=== PATIENT | male | born 1945 ===

== ENCOUNTER 2020-12-05 11:48 | Emergency (ER) | payer MEDICARE, MEDICAID ==
[~2020-12-05] VITALS: Ht 172.7 cm; Wt 134.5 kg
--- NOTE | 2020-12-05 12:20 | NUR ---
PT IN HOSPITAL GOWN. PT CLOTHING AND WATCH PLACED IN BELONGINGS BAG AND PLACED IN CLOTHING LOCKER. PT DID NOT WANT TO SECURE HIS WATCH WITH SECURITY. PT STATED HE WAS DESATING ON RA IN THE AMBULANCE. PT IS 92% ON RA HERE. PT GIVEN FRESH SOCKS. SLAG DUMPER HAS BEEN IN TO TALK WITH PT.
[2020-12-05 12:25] LABS: BASOPHILS % (AUTO) 1 % (0-1); EOSINOPHILS % (AUTO) 2 % (1-7); LYMPHOCYTES % (AUTO) 15 % (22-44); MEAN CORPUSCULAR HEMOGLOBIN 31.9 pg (27.5-34.5); MEAN CORPUSCULAR HGB CONC 34.3 g/dL (33.2-36.2); MEAN PLATELET VOLUME 8.2 fL (7.4-10.4); MONOCYTES % (AUTO) 9 % (2-9); NEUTROPHILS % (AUTO) 73 % (42-75); PLATELET COUNT 299 x10^3/uL (130-400); RED BLOOD COUNT 5.31 x10^6/uL (4.38-5.82); RED CELL DISTRIBUTION WIDTH 14.2 % (9.4-14.8)
[2020-12-05 12:36] LABS: ALBUMIN 3.4 g/dL (3.4-5.0); ANION GAP 8 mmol/L (5-15); CALCIUM 9.2 mg/dL (8.5-10.1); CHLORIDE 105 mmol/L (98-107)
[2020-12-05] MEDS ORDERED: LOSARTAN PO (12:36)
[2020-12-05] MEDS ORDERED: AMLODIPINE PO (12:36)
[2020-12-05] MEDS ORDERED: REMERON PO (12:36)
[2020-12-05] MEDS ORDERED: NAPR-816 PO (12:36)
[2020-12-05] MEDS ORDERED: GABAPENTIN PO (12:36)
[2020-12-05] MEDS ORDERED: ZYPREXA PO (12:36)
[2020-12-05] MEDS ORDERED: HYDR25TA6 PO (12:36)
[2020-12-05 12:39] LABS: SALICYLATE LEVEL < 1.7 mg/dL (2.8-20.0)
[2020-12-05 12:44] LABS: ALANINE AMINOTRANSFERASE 30 U/L (12-78); ALKALINE PHOSPHATASE 94 U/L (45-117); BILIRUBIN,TOTAL 0.3 mg/dL (0.2-1.0); CREATININE 0.92 mg/dL (0.7-1.3); TOTAL PROTEIN 7.8 g/dL (6.4-8.2)
--- NOTE | 2020-12-05 13:02 | NUR ---
PT ATTEMPTING TO PROVIDE A URINE SAMPLE AT THIS TIME, URINAL PROVIDED. PSYCH FARM LOAN REPRESENTATIVE HAS SEEN PT.
[2020-12-05 13:45] LABS: AMPHETAMINE SCREEN, URINE Negative (Negative); BARBITURATE SCREEN, URINE Negative (Negative); BENZODIAZEPINE SCREEN, URINE Negative (Negative); CANNABINOID SCREEN, URINE Negative (Negative); COCAINE SCREEN, URINE Negative (Negative); METHADONE SCREEN, URINE Negative (Negative); OPIATE SCREEN, URINE Negative (Negative)
[2020-12-05] MEDS ORDERED: METOPROLOL SUCCINATE 50 MG TAB.ER.24H PO ONE (14:00)
--- NOTE | 2020-12-05 14:50 | NUR ---
BREAK RN- PT RESTING IN BED, SNACK PROVIDED
--- NOTE | 2020-12-05 15:15 | NUR ---
BHU HERE TO JUSTIN PT
--- NOTE | 2020-12-05 15:27 | NUR ---
PT RESTING IN BED. PT MEDICATED FOR ELEVATED BP. PT ON BP MONITOR. WILL CONTINUE TO MONITOR.
--- NOTE | 2020-12-05 16:11 | NUR ---
PT BP IMPROVED, SEE CHARTED.
--- NOTE | 2020-12-05 17:15 | NUR ---
PT RESTING IN BED WATCHING TV. SITTER AT [facility] FOR OBS.
[2020-12-05] MEDS ORDERED: AMLODIPINE 5 MG TABLET PO ONE (17:30)
[2020-12-05] MEDS ORDERED: AMLODIPINE 5 MG TABLET ONE (17:36)
[2020-12-05] MEDS ORDERED: LORazepam 1MG TABLET ONE (17:42)
[2020-12-05] MEDS ORDERED: LORazepam 1MG TABLET PO ONE (18:00)
--- NOTE | 2020-12-05 19:06 | NUR ---
ASSUMED CARE OF PATIENT. SITTER AT DOOR. VS STABLE. WILL CONTINUE TO MONITOR.
--- NOTE | 2020-12-05 19:29 | NUR ---
REPORT GIVEN TO TAYLOR KU FOR BREAK.
[2020-12-05 20:31] VITALS: BP 153/98
--- NOTE | 2020-12-05 20:34 | NUR ---
PT RESTING IN ROOM. NO ACUTE DISTRESS NOTED. VS STABLE. SITTER AT DOOR. WILL CONINUE TO MONITOR.
[2020-12-05] MEDS ORDERED: OLANZAPINE 5 MG TABLET PO SCH (21:00)
[2020-12-05] MEDS ORDERED: QUETIAPINE 25MG TABLET PO SCH (21:00)
[2020-12-05] MEDS ORDERED: LAMOTRIGINE 100 MG TABLET PO SCH (21:00)
[2020-12-05] MEDS ORDERED: MIRTAZAPINE 15 MG TABLET PO SCH (21:00)
== END 2020-12-05 21:21 ==
LOC: ED 12:16
DX: R45.851 Suicidal ideations (principal); F29 Unspecified psychosis not due to a substance or known physiological condition; I10 Essential (primary) hypertension
CPT/HCPCS: 36415; 80053; 80299; 80307; 80320; 80329; 84443; 85025; 93005; 99285; G0480

== ENCOUNTER 2020-12-18 12:39 | Emergency (ER) | payer MEDICARE, MEDICAID ==
[~2020-12-18] VITALS: Ht 172.7 cm; Wt 130.0 kg
[~2020-12-18 12:39] MED LIST: AMLODIPINE PO; GABAPENTIN PO; HYDR25TA6 PO; LOSARTAN PO; NAPR-816 PO; REMERON PO; ZYPREXA PO
[2020-12-18 13:02] VITALS: BP 164/101
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
[2020-12-18] MEDS ORDERED: QUETIAPINE 100MG TABLET ONE (13:39)
[2020-12-18 13:50] LABS: BASOPHILS % (AUTO) 1 % (0-1); EOSINOPHILS % (AUTO) 2 % (1-7); LYMPHOCYTES % (AUTO) 12 % (22-44); MEAN CORPUSCULAR HEMOGLOBIN 31.7 pg (27.5-34.5); MEAN CORPUSCULAR HGB CONC 33.9 g/dL (33.2-36.2); MEAN PLATELET VOLUME 8.2 fL (7.4-10.4); MONOCYTES % (AUTO) 15 % (2-9); NEUTROPHILS % (AUTO) 71 % (42-75); PLATELET COUNT 267 x10^3/uL (130-400); RED BLOOD COUNT 4.83 x10^6/uL (4.38-5.82); RED CELL DISTRIBUTION WIDTH 14.2 % (9.4-14.8)
[2020-12-18] MEDS ORDERED: BUPROPION SR 100 MG TABLET PO SCH (14:00)
--- NOTE | 2020-12-18 14:02 | NUR ---
PT UPRIGHT ON GURNEY AWAKE & CALM, DENIES PAIN/NAD, COOPERATIVE & RESPONDS TO STAFF QUESTIONS, COMFORT MEASURES PROVIDED, PT IN SAFE ENVIRONMENT, SITTER IN VIEW.
[2020-12-18 14:06] LABS: ALBUMIN 3.2 g/dL (3.4-5.0); ANION GAP 5 mmol/L (5-15); CALCIUM 9.1 mg/dL (8.5-10.1); CHLORIDE 101 mmol/L (98-107); CREATININE 1.04 mg/dL (0.7-1.3); SALICYLATE LEVEL < 1.7 mg/dL (2.8-20.0)
[2020-12-18 14:34] LABS: AMPHETAMINE SCREEN, URINE Negative (Negative); BARBITURATE SCREEN, URINE Negative (Negative); BENZODIAZEPINE SCREEN, URINE Negative (Negative); CANNABINOID SCREEN, URINE Positive (Negative); COCAINE SCREEN, URINE Negative (Negative); METHADONE SCREEN, URINE Negative (Negative); OPIATE SCREEN, URINE Negative (Negative)
--- NOTE | 2020-12-18 15:00 | NUR ---
REPORT GIVEN TO HENRY VAZQUEZ
--- NOTE | 2020-12-18 15:04 | NUR ---
REPORT FROM AMY VAZQUEZ
--- NOTE | 2020-12-18 15:20 | NUR ---
PT RESTING IN [facility]. RESP EVEN AND UNLABORED. SI PRECUATIONS IN PLACE, SITTER AT DOORWAY
--- NOTE | 2020-12-18 17:10 | NUR ---
TP RN NOTE: PSYCH PACKET FAXED TO [facility], [facility]ITT[facility] BLANCA, [place], [facility], [facility]. [facility] CALLED AND NOTIFIED THAT PT IS ACCEPTED. PT TO BE TRANSPORTED FOLLOWING COVID SWAB AND TRANSPORT.
--- NOTE | 2020-12-18 17:15 | NUR ---
SI DINNER TRAY GIVEN TO PT.
--- NOTE | 2020-12-18 17:33 | NUR ---
RAPID IMER COLLECTED AND WALKED TO LAB. PT UPDATED ON POC
--- NOTE | 2020-12-18 17:35 | NUR ---
THROUGHPUT RN: [facility] CALLED TO STATE THEY ARE CURRENTLY AT CAPACITY AND WILL NOTIFY THE THROUGHPUT NURSE WHEN THEY HAVE A ROOM AVAILABLE.
[2020-12-18] MEDS ORDERED: QUET200T4 PO (17:55)
--- NOTE | 2020-12-18 18:45 | NUR ---
REPORT GIVEN TO ABDI VAZQUEZ
--- NOTE | 2020-12-18 18:48 | NUR ---
BEDSIDE REPORT FROM HENRY VAZQUEZSUPERVISORY INVESTIGATIVE SPECIALIST OF CARE AT THIS TIME.
--- NOTE | 2020-12-18 19:29 | NUR ---
REPORT TO SIENA VAZQUEZ PT READY FOR TRANSFER TO [facility] AT THIS TIME
[2020-12-18] MEDS ORDERED: QUETIAPINE 200 MG TABLET PO SCH (21:00)
[2020-12-19] MEDS ORDERED: RISP1TAB90 PO (11:32)
[2020-12-19] MEDS ORDERED: VENL75CA6 PO (11:32)
[2020-12-19] MEDS ORDERED: VENL150T PO (11:32)
[2020-12-19] MEDS ORDERED: QUET50TA5 PO (11:49)
[2020-12-19] MEDS ORDERED: LOSA100T14 PO (11:49)
[2020-12-19] MEDS ORDERED: LAMO100T8 PO (11:49)
[2020-12-19] MEDS ORDERED: GABA-827 PO (11:49)
[2020-12-19] MEDS ORDERED: ESCI10TA97 PO (11:49)
[2020-12-19] MEDS ORDERED: HYDR25TA6 PO (11:49)
[2020-12-19] MEDS ORDERED: AMLO-211 PO (11:49)
== END 2020-12-18 19:46 ==
LOC: ED 13:06 → UNDOADMIN 19:56 → 3E 19:56 → UNDOADMIN 22:56 → ED 23:15
DX: R45.851 Suicidal ideations (principal); Z20.822 Contact with and (suspected) exposure to COVID-19; F33.3 Major depressive disorder, recurrent, severe with psychotic symptoms; R07.9 Chest pain, unspecified; I10 Essential (primary) hypertension; Z87.891 Personal history of nicotine dependence
CPT/HCPCS: 36415; 71045; 80048; 80299; 80307; 80320; 80329; 82040; 85025; 87426; 99284; 99285; G0480

== ENCOUNTER 2020-12-18 17:59 | Inpatient (IN) | payer MEDICARE, MEDICAID ==
[~2020-12-18] VITALS: Ht 172.7 cm; Wt 134.9 kg
[~2020-12-18 17:59] MED LIST changes: +QUET200T4 PO
[2020-12-18] MEDS ORDERED: ONDANSETRON ODT 4 MG PO PRN (19:30)
[2020-12-18] MEDS ORDERED: BISACODYL 10 MG SUPP PR PRN (19:30)
[2020-12-18] MEDS ORDERED: DOCUSATE 100 MG CAPSULE PO PRN (19:30)
[2020-12-18 23:02] LABS: MICROSCOPIC AUTO
[2020-12-18 23:19] VITALS: BP 140/75
[2020-12-18] MEDS: QUETIAPINE 200 MG TABLET PO SCH (23:47)
[2020-12-19 00:01] VITALS: BP 140/75
[2020-12-19] MEDS ORDERED: DIPHENHYDRAMINE 25 MG CAPSULE PO PRN (01:00)
[2020-12-19] MEDS: ACETAMINOPHEN 325 MG TABLET PO PRN ×2 (03:19→11:18)
[2020-12-19 06:11] LABS: CHOL/HDL RATIO 3.8; FREE T4 (FREE THYROXINE) 1.17 ng/dL (0.76-1.46); LDL/HDL RATIO 2.4 (0.5-3.0)
[2020-12-19 07:37] VITALS: BP 145/94
[2020-12-19] MEDS ORDERED: BUPROPION SR 100 MG TABLET PO SCH (09:00)
[2020-12-19] MEDS ORDERED: VENL75CA6 PO (11:32)
[2020-12-19] MEDS ORDERED: RISP1TAB90 PO (11:32)
[2020-12-19] MEDS ORDERED: VENL150T PO (11:32)
[2020-12-19] MEDS ORDERED: AMLO-211 PO (11:49)
[2020-12-19] MEDS ORDERED: LOSA100T14 PO (11:49)
[2020-12-19] MEDS ORDERED: GABA-827 PO (11:49)
[2020-12-19] MEDS ORDERED: LAMO100T8 PO (11:49)
[2020-12-19] MEDS ORDERED: ESCI10TA97 PO (11:49)
[2020-12-19] MEDS ORDERED: HYDR25TA6 PO (11:49)
[2020-12-19] MEDS ORDERED: QUET50TA5 PO (11:49)
[2020-12-19] MEDS: VENLAFAXINE 75 MG CAP ER PO SCH (15:16)
[2020-12-19] MEDS ORDERED: LORazepam 1MG TABLET PO ONE (19:00)
[2020-12-19 19:23] VITALS: BP 145/88
[2020-12-19] MEDS: LAMOTRIGINE 100 MG TABLET PO SCH (20:14)
[2020-12-19] MEDS: QUETIAPINE 200 MG TABLET PO SCH (21:54)
[2020-12-20] MEDS: ACETAMINOPHEN 325 MG TABLET PO PRN ×2 (01:52→11:20)
[2020-12-20 07:45] VITALS: BP 170/117
[2020-12-20] MEDS: LOSARTAN 100 MG TAB PO SCH (08:25)
[2020-12-20] MEDS: LAMOTRIGINE 100 MG TABLET PO SCH ×2 (08:25→20:04)
[2020-12-20] MEDS: HYDROCHLOROTHIAZIDE 25 MG TABLET PO SCH (08:25)
[2020-12-20] MEDS: VENLAFAXINE 75 MG CAP ER PO SCH (08:25)
[2020-12-20 09:38] VITALS: BP 159/83
[2020-12-20 18:38] VITALS: BP 159/111
[2020-12-20] MEDS: QUETIAPINE 200 MG TABLET PO SCH (20:52)
[2020-12-21 07:26] VITALS: BP 137/79
[2020-12-21] MEDS: HYDROCHLOROTHIAZIDE 25 MG TABLET PO SCH (08:27)
[2020-12-21] MEDS: LAMOTRIGINE 100 MG TABLET PO SCH ×2 (08:27→20:22)
[2020-12-21] MEDS: LOSARTAN 100 MG TAB PO SCH (08:28)
[2020-12-21] MEDS: VENLAFAXINE 75 MG CAP ER PO SCH (08:28)
[2020-12-21 19:27] VITALS: BP 155/100
[2020-12-21] MEDS: QUETIAPINE 200 MG TABLET PO SCH (21:11)
[2020-12-22 07:26] VITALS: BP 171/99
[2020-12-22] MEDS ORDERED: MIRT-37 PO (07:36)
[2020-12-22] MEDS ORDERED: OLAN20TA3 PO (07:36)
[2020-12-22] MEDS ORDERED: METOPROLOL SUCCINATE 50 MG TAB.ER.24H ONE (08:35)
[2020-12-22] MEDS: LAMOTRIGINE 100 MG TABLET PO SCH ×2 (08:54→20:55)
[2020-12-22] MEDS: HYDROCHLOROTHIAZIDE 25 MG TABLET PO SCH (08:54)
[2020-12-22] MEDS: VENLAFAXINE 75 MG CAP ER PO SCH (08:55)
[2020-12-22] MEDS: LOSARTAN 100 MG TAB PO SCH (08:55)
[2020-12-22] MEDS: METOPROLOL SUCCINATE 50 MG TAB.ER.24H PO SCH (08:55)
[2020-12-22] MEDS: GABAPENTIN 400 MG CAPSULE PO SCH ×3 (08:55→20:55)
[2020-12-22] MEDS: NAPROXEN 250 MG TABLET PO SCH ×2 (08:57→20:56)
[2020-12-22 18:15] VITALS: BP 138/83
[2020-12-22 19:56] VITALS: BP 141/87
[2020-12-22] MEDS: QUETIAPINE 200 MG TABLET PO SCH (20:55)
[2020-12-23] MEDS: METOPROLOL SUCCINATE 50 MG TAB.ER.24H PO SCH (05:40)
[2020-12-23 07:30] VITALS: BP 149/93
[2020-12-23] MEDS: LOSARTAN 100 MG TAB PO SCH (08:42)
[2020-12-23] MEDS: NAPROXEN 250 MG TABLET PO SCH ×2 (08:42→21:11)
[2020-12-23] MEDS: LAMOTRIGINE 100 MG TABLET PO SCH ×2 (08:42→21:11)
[2020-12-23] MEDS: VENLAFAXINE 75 MG CAP ER PO SCH (08:44)
[2020-12-23] MEDS: HYDROCHLOROTHIAZIDE 25 MG TABLET PO SCH (08:44)
[2020-12-23] MEDS: GABAPENTIN 400 MG CAPSULE PO SCH ×3 (09:17→21:11)
[2020-12-23 18:43] VITALS: BP 145/84
[2020-12-23] MEDS: POLYETHYLENE GLYCOL 17 GM PACKET PO PRN (21:09)
[2020-12-23] MEDS: QUETIAPINE 200 MG TABLET PO SCH (21:11)
[2020-12-24] MEDS: METOPROLOL SUCCINATE 50 MG TAB.ER.24H PO SCH (05:37)
[2020-12-24 07:39] VITALS: BP 144/85
[2020-12-24] MEDS: LAMOTRIGINE 100 MG TABLET PO SCH ×2 (09:17→22:14)
[2020-12-24] MEDS: LOSARTAN 100 MG TAB PO SCH (09:17)
[2020-12-24] MEDS: NAPROXEN 250 MG TABLET PO SCH ×2 (09:18→22:14)
[2020-12-24] MEDS: HYDROCHLOROTHIAZIDE 25 MG TABLET PO SCH (09:18)
[2020-12-24] MEDS: GABAPENTIN 400 MG CAPSULE PO SCH ×3 (09:18→22:13)
[2020-12-24] MEDS: VENLAFAXINE 75 MG CAP ER PO SCH (09:18)
[2020-12-24 19:38] VITALS: BP 143/81
[2020-12-24] MEDS: QUETIAPINE 200 MG TABLET PO SCH (22:13)
[2020-12-25 05:47] VITALS: BP 138/84
[2020-12-25] MEDS: METOPROLOL SUCCINATE 50 MG TAB.ER.24H PO SCH (05:58)
[2020-12-25 07:34] VITALS: BP 115/72
[2020-12-25] MEDS: NAPROXEN 250 MG TABLET PO SCH ×2 (09:25→20:59)
[2020-12-25] MEDS: GABAPENTIN 400 MG CAPSULE PO SCH ×3 (09:25→20:59)
[2020-12-25] MEDS: LAMOTRIGINE 100 MG TABLET PO SCH ×2 (09:25→20:59)
[2020-12-25] MEDS: VENLAFAXINE 75 MG CAP ER PO SCH (09:25)
[2020-12-25] MEDS: HYDROCHLOROTHIAZIDE 25 MG TABLET PO SCH (09:25)
[2020-12-25] MEDS: LOSARTAN 100 MG TAB PO SCH (09:25)
[2020-12-25] MEDS: POLYETHYLENE GLYCOL 17 GM PACKET PO PRN (11:56)
[2020-12-25 19:30] VITALS: BP 137/84
[2020-12-25] MEDS: QUETIAPINE 200 MG TABLET PO SCH (20:59)
[2020-12-26 05:42] VITALS: BP 157/101
[2020-12-26] MEDS: METOPROLOL SUCCINATE 50 MG TAB.ER.24H PO SCH (06:00)
[2020-12-26 07:26] VITALS: BP 135/85
[2020-12-26] MEDS: GABAPENTIN 400 MG CAPSULE PO SCH ×3 (09:06→21:03)
[2020-12-26] MEDS: LAMOTRIGINE 100 MG TABLET PO SCH ×2 (09:07→21:06)
[2020-12-26] MEDS: HYDROCHLOROTHIAZIDE 25 MG TABLET PO SCH (09:07)
[2020-12-26] MEDS: NAPROXEN 250 MG TABLET PO SCH ×2 (09:07→21:02)
[2020-12-26] MEDS: VENLAFAXINE 75 MG CAP ER PO SCH (09:07)
[2020-12-26] MEDS: ASCORBIC ACID 500 MG TABLET PO SCH (10:00)
[2020-12-26 19:35] VITALS: BP 150/79
[2020-12-26] MEDS: LOSARTAN 100 MG TAB PO SCH (21:02)
[2020-12-26] MEDS: QUETIAPINE 200 MG TABLET PO SCH (21:02)
[2020-12-27] MEDS: METOPROLOL SUCCINATE 50 MG TAB.ER.24H PO SCH (06:09)
[2020-12-27 07:47] VITALS: BP 158/85
[2020-12-27] MEDS: LAMOTRIGINE 100 MG TABLET PO SCH ×2 (09:12→20:59)
[2020-12-27] MEDS: ASCORBIC ACID 500 MG TABLET PO SCH (09:12)
[2020-12-27] MEDS: HYDROCHLOROTHIAZIDE 25 MG TABLET PO SCH (09:12)
[2020-12-27] MEDS: VENLAFAXINE 75 MG CAP ER PO SCH (09:12)
[2020-12-27] MEDS: NAPROXEN 250 MG TABLET PO SCH ×2 (09:12→20:59)
[2020-12-27] MEDS: GABAPENTIN 400 MG CAPSULE PO SCH ×3 (09:18→20:59)
[2020-12-27 19:32] VITALS: BP 170/95
[2020-12-27] MEDS: LOSARTAN 100 MG TAB PO SCH (20:59)
[2020-12-27] MEDS: QUETIAPINE 200 MG TABLET PO SCH (20:59)
[2020-12-28 03:37] VITALS: BP 150/91
[2020-12-28] MEDS: METOPROLOL SUCCINATE 50 MG TAB.ER.24H PO SCH (06:05)
[2020-12-28 06:09] VITALS: BP 149/85
[2020-12-28 07:25] VITALS: BP 140/86
[2020-12-28] MEDS: NAPROXEN 250 MG TABLET PO SCH (08:57)
[2020-12-28] MEDS: GABAPENTIN 400 MG CAPSULE PO SCH (08:57)
[2020-12-28] MEDS: VENLAFAXINE 75 MG CAP ER PO SCH (08:57)
[2020-12-28] MEDS: LAMOTRIGINE 100 MG TABLET PO SCH (08:58)
[2020-12-28] MEDS: ASCORBIC ACID 500 MG TABLET PO SCH (08:58)
[2020-12-28] MEDS: HYDROCHLOROTHIAZIDE 25 MG TABLET PO SCH (08:58)
[2020-12-28] MEDS ORDERED: METO-93 PO (13:09)
[2020-12-28] MEDS ORDERED: VENL75CA6 PO (13:09)
[2020-12-28] MEDS ORDERED: ASCO500T9 PO (13:09)
[2020-12-28] MEDS ORDERED: QUET200T PO (13:09)
== END 2020-12-28 13:58 | disposition home or self-care (01) | DRG 885 ==
LOC: 3E 23:01
PROVIDERS: ADMIT Psychiatry & Neurology Psychosomatic Medicine; ATTEND Psychiatry & Neurology Psychosomatic Medicine
DX: F31.5 Bipolar disorder, current episode depressed, severe, with psychotic features (principal); Z68.42 Body mass index [BMI] 45.0-49.9, adult; I10 Essential (primary) hypertension; E66.9 Obesity, unspecified; G47.00 Insomnia, unspecified; G89.29 Other chronic pain; E11.9 Type 2 diabetes mellitus without complications; M19.90 Unspecified osteoarthritis, unspecified site; R06.00 Dyspnea, unspecified; Z60.2 Problems related to living alone; Z91.5 Personal history of self-harm; Z79.899 Other long term (current) drug therapy; Z88.8 Allergy status to other drugs, medicaments and biological substances; Z83.3 Family history of diabetes mellitus; Z81.8 Family history of other mental and behavioral disorders; Z82.49 Family history of ischemic heart disease and other diseases of the circulatory system; R26.81 Unsteadiness on feet; J00 Acute nasopharyngitis [common cold]
CPT/HCPCS: 36415; 80061; 81001; 82607; 84439; 84443; 93005; Q0162; Q0163

== ENCOUNTER 2021-02-11 21:27 | Emergency (ER) | payer MEDICAID, MEDICARE ==
[~2021-02-11] VITALS: Ht 175.3 cm; Wt 150.0 kg
[~2021-02-11 21:27] MED LIST changes: +AMLO-211 PO; +ASCO500T9 PO; +ESCI10TA97 PO; +GABA-827 PO; +LAMO100T8 PO; +LOSA100T14 PO; +METO-93 PO; +MIRT-37 PO; +OLAN20TA3 PO; +QUET200T2 PO; +QUET50TA5 PO; +RISP1TAB90 PO; +VENL150T PO; +VENL75CA6 PO
[2021-02-11 22:48] LABS: BASOPHILS % (AUTO) 1 % (0-1); EOSINOPHILS % (AUTO) 2 % (1-7); LYMPHOCYTES % (AUTO) 20 % (22-44); MEAN CORPUSCULAR HEMOGLOBIN 32.6 pg (27.5-34.5); MEAN CORPUSCULAR HGB CONC 34.3 g/dL (33.2-36.2); MEAN PLATELET VOLUME 8.6 fL (7.4-10.4); MONOCYTES % (AUTO) 10 % (2-9); NEUTROPHILS % (AUTO) 67 % (42-75); PLATELET COUNT 242 x10^3/uL (130-400); RED BLOOD COUNT 5.44 x10^6/uL (4.38-5.82); RED CELL DISTRIBUTION WIDTH 15.5 % (9.4-14.8)
[2021-02-11 22:51] LABS: ALBUMIN 3.4 g/dL (3.4-5.0); ANION GAP 6 mmol/L (5-15); CALCIUM 9.7 mg/dL (8.5-10.1); CHLORIDE 103 mmol/L (98-107)
[2021-02-11 22:55] LABS: ALANINE AMINOTRANSFERASE 22 U/L (12-78); ALKALINE PHOSPHATASE 96 U/L (45-117); BILIRUBIN,TOTAL 0.4 mg/dL (0.2-1.0); CREATININE 1.06 mg/dL (0.7-1.3); TOTAL PROTEIN 8.3 g/dL (6.4-8.2); TROPONIN I < 0.015 ng/mL (0.000-0.045)
--- NOTE | 2021-02-12 03:12 | NUR ---
PT WHEELED TO ROOM, AND IN BED, AND IN POSITION OF COMFORT. PT STATES HE RAN OUT OF [facility] 1 MONTH AGO, BUT STILL HAS HIS PSYCH MEDS. PT FEELS DEPRESSED, AND SAYS EVERYTIME HE GOES HOME HE STOPS TAKING CARE OF HIMSELF, AND THAT DOESN'T MAKE HIM FEEL GOOD. PT CALM AND COOPERATIVE AND WAITING FOR MD.
[2021-02-12 04:07] VITALS: BP 188/99
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
--- NOTE | 2021-02-12 04:27 | NUR ---
PT ESCORTED TO DISCHARGE DESK AND OUT OF HOSPITAL BY SECURITY, IN HIS WHEELCHAIR.
== END 2021-02-12 04:28 | disposition home or self-care (01) ==
LOC: ED 23:59
DX: R07.89 Other chest pain (principal); I10 Essential (primary) hypertension; Z76.0 Encounter for issue of repeat prescription; R00.0 Tachycardia, unspecified
CPT/HCPCS: 36415; 71045; 80053; 84484; 85025; 93005; 99285